=== PATIENT | male | born 1945 | race Caucasian/White ===

== ENCOUNTER 2017-01-25 19:45 | Inpatient (IN) | payer OTHER, MEDICAID ==
[~2017-01-25] VITALS: Ht 167.6 cm; Wt 86.0 kg
[~2017-01-25 19:45] MED LIST: ASPI-COR81 M2 PO; CLINDAMYCIN HC300 MG PO; DEPAKOTE ER250 M1 PO; ECO81 PO; FLO4 PO; GUAIFENESIN AC473 ML PO; HYDROCHLOROTHIA25 MG PO; LAC PO; LEVAQUIN750 MG PO; MEDDP PO; METOPROLOL TART25 M1 PO; OMEPRAZOLE DR20 M1 PO; PROMETHAZINE V118 M2 PO; ZES10 PO
[2017-01-25 20:44] LABS: BASOPHIL % 0.4 % (0-2); PLATELET COUNT 214 x10^3mcL (130-400)
[2017-01-25 20:45] LABS: RED CELL DISTRIBUTION WIDTH 14.8 % (11.5-14.5)
[2017-01-25 20:54] LABS: CALCIUM 7.7 mg/dL (8.5-10.1); CARBON DIOXIDE 28.6 mmol/L (21-32); CHLORIDE SERUM 104 mmol/L (98-107); CREATININE SERUM 1.2 mg/dL (0.7-1.3); GFR1 > 60 mL/min; GLUCOSE SERUM 126 mg/dL (74-106); POTASSIUM SERUM 3.7 mmol/L (3.5-5.1); SODIUM SERUM 138 mmol/L (136-145)
[2017-01-25 20:58] LABS: ALBUMIN 3.4 g/dL (3.4-5.0); ALKALINE PHOSPHATASE 81 U/L (46-116); ALT/SGPT 38 U/L (16-63); AST/SGOT 28 U/L (15-37); BILIRUBIN TOTAL 0.6 mg/dL (0.20-1.00); LIPASE 154 IU/L (73-393); TOTAL PROTEIN, SERUM 6.5 g/dL (6.4-8.2)
[2017-01-25 21:09] LABS: microscopic required? NO
[2017-01-25 21:13] LABS: urine erythrocyte NEGATIVE (NEGATIVE)
[2017-01-25 21:23] LABS: AMPHETAMINE QUAL UR NONE DETECTED (NEG <=1000)
[2017-01-25 23:26] LABS: TOTAL PROTEIN CSF 47.7 mg/dL (15-45)
[2017-01-25 23:38] LABS: APPEARANCE CSF CLEAR; COLOR CSF COLORLESS; RBC CSF 3 /cumm (0); WBC CSF 0 /cumm (0-5)
[2017-01-26] VITALS (7 sets, daily range): BP systolic 104–126; BP diastolic 62–78
[2017-01-26 02:01] LABS: CHOLESTEROL/HDL RATIO 2.2; MAGNESIUM 2.1 mg/dL (1.8-2.4); PHOSPHOROUS 2.9 mg/dL (2.5-4.9)
[2017-01-26 02:06] LABS: T3 TOTAL 0.95 ng/mL
[2017-01-26 02:09] LABS: FREE T4 1.07 ng/dL (0.76-1.46); FREE THYROXINE INDEX 2.7 ug/dL (1.4-4.5); T4(THYROXINE) 7.2 ug/dL (4.7-13.3)
[2017-01-26 07:41] LABS: BASOPHIL % 0.4 % (0-2); PLATELET COUNT 212 x10^3mcL (130-400)
[2017-01-26 07:45] LABS: RED CELL DISTRIBUTION WIDTH 14.7 % (11.5-14.5)
[2017-01-26 07:59] LABS: CALCIUM 8.7 mg/dL (8.5-10.1); CARBON DIOXIDE 28.4 mmol/L (21-32); CHLORIDE SERUM 107 mmol/L (98-107); GFR1 > 60 mL/min; GLUCOSE SERUM 101 mg/dL (74-106); MAGNESIUM 2.1 mg/dL (1.8-2.4); PHOSPHOROUS 3.3 mg/dL (2.5-4.9); POTASSIUM SERUM 4.2 mmol/L (3.5-5.1); SODIUM SERUM 141 mmol/L (136-145)
[2017-01-27 06:41] LABS: BASOPHIL % 0.4 % (0-2); PLATELET COUNT 204 x10^3mcL (130-400); RED CELL DISTRIBUTION WIDTH 14.5 % (11.5-14.5)
[2017-01-27 06:53] VITALS: BP 114/76
[2017-01-27 06:54] LABS: CALCIUM 8.6 mg/dL (8.5-10.1); CARBON DIOXIDE 23.6 mmol/L (21-32); CHLORIDE SERUM 106 mmol/L (98-107); CREATININE SERUM 0.9 mg/dL (0.7-1.3); GFR1 > 60 mL/min; GLUCOSE SERUM 98 mg/dL (74-106); SODIUM SERUM 139 mmol/L (136-145)
[2017-01-27 09:33] VITALS: BP 117/78
[2017-01-27 17:04] VITALS: BP 114/75
[2017-01-27 22:03] VITALS: BP 111/70
[2017-01-28 05:55] VITALS: BP 109/68
[2017-01-28 08:45] VITALS: BP 109/68
[2017-01-28 09:32] VITALS: BP 117/49
[2017-01-28 11:08] LABS: BASOPHIL % 0.4 % (0-2); PLATELET COUNT 219 x10^3mcL (130-400); RED CELL DISTRIBUTION WIDTH 14.5 % (11.5-14.5)
== END 2017-01-28 10:00 | disposition home or self-care (01) | DRG 75 ==
LOC: ED 19:45 → DU 01-26 00:08 → MU 01-27 10:19
PROVIDERS: Emergency Medicine; ADMIT Family Medicine
PROC: 009U3ZX Drainage of Spinal Canal, Percutaneous Approach, Diagnostic (ICD-10-PCS; principal; 2017-01-25)
DX: A87.9 Viral meningitis, unspecified (principal); G93.41 Metabolic encephalopathy; K72.91 Hepatic failure, unspecified with coma; I25.5 Ischemic cardiomyopathy; I10 Essential (primary) hypertension; I35.0 Nonrheumatic aortic (valve) stenosis; N40.0 Benign prostatic hyperplasia without lower urinary tract symptoms; E78.5 Hyperlipidemia, unspecified; D64.9 Anemia, unspecified; F31.9 Bipolar disorder, unspecified; F17.210 Nicotine dependence, cigarettes, uncomplicated; E66.9 Obesity, unspecified; Z68.30 Body mass index [BMI] 30.0-30.9, adult; Z79.82 Long term (current) use of aspirin; Z85.030 Personal history of malignant carcinoid tumor of large intestine; Z59.0 Homelessness
CPT/HCPCS: 82962; 83880; 84439; G0480; J0696; J1940; J2001; J2250; J3490; J7030; Q0092

== ENCOUNTER 2017-03-13 15:14 | Emergency (ER) | payer OTHER, MEDICAID ==
[~2017-03-13] VITALS: Ht 170.2 cm; Wt 81.6 kg
[2017-03-13 15:20] VITALS: BP 122/79
== END 2017-03-13 15:53 | disposition other institution (70) ==
LOC: ED 15:14
DX: Z02.89 Encounter for other administrative examinations (principal); I10 Essential (primary) hypertension; E78.00 Pure hypercholesterolemia, unspecified

== ENCOUNTER 2017-03-13 15:14 | Emergency (ER) | payer OTHER | END 2017-03-13 15:53 | disposition other institution (70) | LOC: ED 15:14 | DX: Z02.89 Encounter for other administrative examinations (principal); I10 Essential (primary) hypertension; E78.00 Pure hypercholesterolemia, unspecified ==

== ENCOUNTER 2017-03-26 05:24 | Emergency (ER) | payer OTHER, MEDICAID ==
[2017-03-26 07:18] LABS: BASOPHIL % 0.2 % (0-2); PLATELET COUNT 176 x10^3mcL (130-400); RED CELL DISTRIBUTION WIDTH 13.8 % (11.5-14.5)
[2017-03-26 07:25] LABS: CALCIUM 7.8 mg/dL (8.5-10.1); CARBON DIOXIDE 23.9 mmol/L (21-32); CHLORIDE SERUM 108 mmol/L (98-107); CREATININE SERUM 0.8 mg/dL (0.7-1.3); GFR1 > 60 mL/min; GLUCOSE SERUM 107 mg/dL (74-106); POTASSIUM SERUM 3.6 mmol/L (3.5-5.1); SODIUM SERUM 138 mmol/L (136-145)
[2017-03-26 07:30] LABS: ALBUMIN 2.7 g/dL (3.4-5.0); ALKALINE PHOSPHATASE 90 U/L (46-116); ALT/SGPT 39 U/L (16-63); AST/SGOT 29 U/L (15-37); BILIRUBIN TOTAL 0.4 mg/dL (0.20-1.00); CHOLESTEROL 114 mg/dL (<200); HDL CHOLESTEROL 42 mg/dL (40-60); PHOSPHOROUS 2.3 mg/dL (2.5-4.9); TOTAL PROTEIN, SERUM 6.1 g/dL (6.4-8.2); URIC ACID 3.3 mg/dL (3.5-7.2)
[2017-03-26 09:27] VITALS: BP 108/68
== END 2017-03-26 09:28 | disposition left against medical advice (07) ==
LOC: ED 05:24
PROVIDERS: Emergency Medicine
DX: S06.5X0A Traumatic subdural hemorrhage without loss of consciousness, initial encounter (principal); I10 Essential (primary) hypertension; E78.00 Pure hypercholesterolemia, unspecified; W50.1XXA Accidental kick by another person, initial encounter; Y93.89 Activity, other specified; Y99.8 Other external cause status; Y92.89 Other specified places as the place of occurrence of the external cause
CPT/HCPCS: 36415; 83880

== ENCOUNTER 2017-04-01 15:25 | Emergency (ER) | payer OTHER, MEDICAID ==
[~2017-04-01] VITALS: Ht 171.4 cm; Wt 79.4 kg
[2017-04-01 19:50] VITALS: BP 115/60
== END 2017-04-01 19:50 | disposition home or self-care (01) ==
LOC: ED 15:25
DX: S20.212A Contusion of left front wall of thorax, initial encounter (principal); S90.112A Contusion of left great toe without damage to nail, initial encounter; E78.00 Pure hypercholesterolemia, unspecified; I10 Essential (primary) hypertension; Z85.038 Personal history of other malignant neoplasm of large intestine; X58.XXXA Exposure to other specified factors, initial encounter; Y93.89 Activity, other specified; Y99.8 Other external cause status; Y92.89 Other specified places as the place of occurrence of the external cause

== ENCOUNTER 2017-04-05 02:49 | Emergency (ER) | payer OTHER, MEDICAID ==
[2017-04-05 05:15] VITALS: BP 109/72
== END 2017-04-05 05:15 | disposition home or self-care (01) ==
LOC: ED 02:49
DX: G89.29 Other chronic pain (principal); M79.604 Pain in right leg
CPT/HCPCS: J1885; Q0092

== ENCOUNTER 2017-04-06 21:19 | Emergency (ER) | payer OTHER, MEDICAID ==
[2017-04-06 21:36] VITALS: BP 111/76
== END 2017-04-06 22:50 | disposition left against medical advice (07) ==
LOC: ED 21:19
DX: Z53.21 Procedure and treatment not carried out due to patient leaving prior to being seen by health care provider (principal)

== ENCOUNTER 2017-04-08 00:20 | Emergency (ER) | payer OTHER, MEDICAID ==
[2017-04-08 03:51] VITALS: BP 110/64
== END 2017-04-08 03:52 | disposition home or self-care (01) ==
LOC: ED 00:20
DX: G89.29 Other chronic pain (principal); M79.604 Pain in right leg; I10 Essential (primary) hypertension; E78.5 Hyperlipidemia, unspecified; K21.9 Gastro-esophageal reflux disease without esophagitis; R41.3 Other amnesia

== ENCOUNTER 2017-04-09 21:21 | Emergency (ER) | payer OTHER, MEDICAID ==
[~2017-04-09] VITALS: Ht 170.2 cm; Wt 77.1 kg
[2017-04-09 22:10] LABS: BASOPHIL % 0.1 % (0-2); PLATELET COUNT 300 x10^3mcL (130-400)
[2017-04-09 22:24] LABS: CALCIUM 8.2 mg/dL (8.5-10.1); CARBON DIOXIDE 28.3 mmol/L (21-32); CHLORIDE SERUM 105 mmol/L (98-107); GFR1 > 60 mL/min; GLUCOSE SERUM 103 mg/dL (74-106); SODIUM SERUM 138 mmol/L (136-145)
[2017-04-10 00:07] VITALS: BP 95/57
== END 2017-04-10 00:07 | disposition home or self-care (01) ==
LOC: ED 21:21
PROVIDERS: Emergency Medicine
DX: E87.6 Hypokalemia (principal); Z59.0 Homelessness
CPT/HCPCS: 36415; G0480

== ENCOUNTER 2017-04-14 19:50 | Emergency (ER) | payer OTHER, MEDICAID ==
[2017-04-14 22:56] VITALS: BP 108/73
== END 2017-04-14 22:30 | disposition home or self-care (01) ==
LOC: ED 19:50
DX: S86.811A Strain of other muscle(s) and tendon(s) at lower leg level, right leg, initial encounter (principal); E78.00 Pure hypercholesterolemia, unspecified; I60.9 Nontraumatic subarachnoid hemorrhage, unspecified; Z79.899 Other long term (current) drug therapy; Z85.038 Personal history of other malignant neoplasm of large intestine; Z98.890 Other specified postprocedural states; X58.XXXA Exposure to other specified factors, initial encounter; Y93.89 Activity, other specified; Y92.89 Other specified places as the place of occurrence of the external cause; Y99.8 Other external cause status
CPT/HCPCS: J7030; Q0092

== ENCOUNTER 2017-04-26 10:01 | Emergency (ER) | payer OTHER ==
[~2017-04-26] VITALS: Ht 170.2 cm; Wt 77.1 kg
[2017-04-26 10:08] VITALS: BP 142/73
== END 2017-04-26 10:24 | disposition other institution (70) ==
LOC: ED 10:01
DX: Z02.89 Encounter for other administrative examinations (principal); I87.8 Other specified disorders of veins; I11.0 Hypertensive heart disease with heart failure; I50.9 Heart failure, unspecified; E11.9 Type 2 diabetes mellitus without complications; E78.00 Pure hypercholesterolemia, unspecified; N40.0 Benign prostatic hyperplasia without lower urinary tract symptoms

== ENCOUNTER 2017-06-07 02:27 | Inpatient (IN) | payer OTHER, MEDICAID ==
[~2017-06-07] VITALS: Ht 167.6 cm; Wt 78.6 kg
[2017-06-07] VITALS (7 sets, daily range): BP systolic 94–114; BP diastolic 56–69
[2017-06-07 03:52] LABS: BASOPHIL % 0 % (0-2); PLATELET COUNT 64 x10^3mcL (130-400); RED CELL DISTRIBUTION WIDTH 22.2 % (11.5-14.5)
[2017-06-07 03:55] LABS: ALKALINE PHOSPHATASE 103 U/L (46-116); ALT/SGPT 22 U/L (16-63); AST/SGOT 28 U/L (15-37); BILIRUBIN TOTAL 0.6 mg/dL (0.20-1.00); CALCIUM 7.6 mg/dL (8.5-10.1); CARBON DIOXIDE 26.8 mmol/L (21-32); CHLORIDE SERUM 108 mmol/L (98-107); CREATININE SERUM 0.9 mg/dL (0.7-1.3); GFR1 > 60 mL/min; GLUCOSE SERUM 139 mg/dL (74-106); SODIUM SERUM 142 mmol/L (136-145)
--- NOTE | 2017-06-07 04:02 | NUR ---
PATIENT SEEN SLEEPING, EXPRESS HE HAS CHEST PRESSURE WHEN AWAKEN. NO APPARENT DISTRESS NOTED.
[2017-06-07 04:03] LABS: TOTAL PROTEIN, SERUM 5.9 g/dL (6.4-8.2)
[2017-06-07 04:04] LABS: POTASSIUM SERUM 2.7 mmol/L (3.5-5.1)
[2017-06-07 04:21] LABS: ovalocyte/elliptocyte 1+; rbc morphology (normal/abnorm) ABNORMAL (NORMAL)
--- NOTE | 2017-06-07 04:27 | NUR ---
MRSA SWAB WAS DONE.
[2017-06-07] MEDS ORDERED: NEU300 PO (04:41)
[2017-06-07] MEDS ORDERED: ABILIFY5 M1 PO (04:42)
[2017-06-07] MEDS ORDERED: IBUPROFEN400 MG PO (04:43)
[2017-06-07] MEDS ORDERED: LASIX20 MG PO (04:44)
--- NOTE | 2017-06-07 05:14 | NUR ---
REPORT WAS GIVENT WERNER. PATIENT TRANSPORTED TO ROOM 225.
[2017-06-07 05:18] LABS: UA SPECIFIC GRAVITY 1.025 (1.005-1.035); microscopic required? YES; urine erythrocyte 3+ (NEGATIVE)
[2017-06-07 06:06] LABS: AMPHETAMINE QUAL UR POSITIVE (NEG <=1000)
[2017-06-07 06:07] LABS: MAGNESIUM 1.7 mg/dL (1.8-2.4); PHOSPHOROUS 3.1 mg/dL (2.5-4.9)
[2017-06-07 06:08] LABS: CHOLESTEROL/HDL RATIO 4.7
--- NOTE | 2017-06-07 06:13 | NUR ---
Admitted this 71y/o male from ED via erney. Alert and oriented. No resp.distress noted. Denies pain at this time. Admission assessment done. Sinus tachycardia tele #40. Homeless per pt. Safety maintained. Call light within reach.
--- NOTE | 2017-06-07 07:56 | NUR ---
PT RECEIVED DURING CHANGE OF SHIFT, ASLEEP BUT AROUSABLE, TELE 40, ST, PULSES PRESENT, +2 EDEMA BLE, LUNGS DIM ON 2L NC, BREATHING EVEN AND UNLABORED, BOWEL SOUNDS ACTIVE, ABLE TO VOID, MILD GENERALIZED WEAKNESS, AMBULATORY, SKIN WARM/DRY/INTACT, NO INDICATION OF PAIN, IV TO RAC INFUSING LEVAQUIN AT 100ML/HR, IV WNL, CALL LIGHT WITHIN REACH, WILL CONTINUE TO MONITOR.
--- NOTE | 2017-06-07 08:05 | NUR ---
PT IN RESTROOM.
--- NOTE | 2017-06-07 09:07 | NUR ---
DR. ESTRADA AND RESIDENTS MAKING ROUNDS, PLAN OF CARE DISCUSSED.
--- NOTE | 2017-06-07 09:30 | NUR ---
DENIES PAIN, DENIES SOB ON 2L NC, MEDS GIVEN, ACETOMINOPHEN GIVEN FOR TEMP 100.0, CALL LIGHT WITHIN REACH, WILL CONTINUE TO MONITOR.
--- NOTE | 2017-06-07 10:14 | NUR ---
DR. RIOS AT BEDSIDE ASSESSING PT.
--- NOTE | 2017-06-07 11:20 | NUR ---
PT DENIES SOB, DENIES PAIN, US AT BEDSIDE, BS 108, NO COVERAGE NEEDED, CALL LIGHT WITHIN REACH, WILL CONTINUE TO MONITOR.
--- NOTE | 2017-06-07 12:15 | NUR ---
PT ASLEEP BUT AROUSABLE, LAB AT BEDSIDE DRAWING BLOOD, CALL LIGHT WITHIN REACH, WILL CONTINUE TO MONITOR.
[2017-06-07 12:50] LABS: CALCIUM 7.8 mg/dL (8.5-10.1); CARBON DIOXIDE 25.7 mmol/L (21-32); CHLORIDE SERUM 108 mmol/L (98-107); CREATININE SERUM 0.7 mg/dL (0.7-1.3); GFR1 > 60 mL/min; GLUCOSE SERUM 111 mg/dL (74-106); SODIUM SERUM 138 mmol/L (136-145)
[2017-06-07 12:55] LABS: IRON 22 ug/dL (65-170); POTASSIUM SERUM 2.9 mmol/L (3.5-5.1); TOTAL IRON BINDING CAPACITY 181 ug/dL (250-450)
--- NOTE | 2017-06-07 13:28 | NUR ---
PT DENIES SOB, DENIES PAIN, MEDS GIVEN, CALL LIGHT WITHIN REACH, WILL CONTINUE TO MONITOR.
[2017-06-07 14:10] LABS: RED BLOOD CELLS 2.78 M/mm3 (4.52-5.90)
--- NOTE | 2017-06-07 14:19 | NUR ---
ECHO IN PROGRESS.
--- NOTE | 2017-06-07 15:13 | NUR ---
PT DENIES SOB, DENIES PAIN, STATES HE WAS SEEN BY KETTLE ROOM HELPER, CALL LIGHT WITHIN REACH, WILL CONTINUE TO MONITOR.
--- NOTE | 2017-06-07 15:45 | NUR ---
NEW IV LINE TO LFA PATENT 20GA., IV TO RAC DC'D CATHETER INTACT.
--- NOTE | 2017-06-07 15:47 | NUR ---
Initial Nutrition Assessment- Dx: PNA, NSTEMI, hypokalemia PMHx: HTN, CHF, bipolar PSHx: colon resection 2/2 cancer Labs: (06/07/17) K 2.7, Glucose 139 H, Total protein 5.9 L, Albumin 2 L, H/H 8.7L/27L. Meds: aspirin, Colace, D50%/water, ferrous sulfate, humulin R, klor-con, Lasix, levaquin, Lipitor, Lopressor, magnesium sulfate, morphine sulfate, Tylenol, Zestril, Zithromax. Diet: NPO PO Intakes: Patient is currently NPO Ht: 66 inches (5'6") Wt: 173 pounds (78.58 kg) BMI: 28 kg/m2, overweight for age. IBW: 142 pounds (65 kg) %IBW: 121% UBW: Unable to obtain Age: 64 Food Allergies: Unable to obtain Skin: Semaj 20 Edema: Per Nursing Patient Care Note (06/07), patient with edema +2 BLE GI: Last BM prior to admission Pt admitted with dx: chest pain possibly 2/2 costochondritis vs pleuritis vs NSTEMI (trop 0.659), SIRS w/ possible aspiration pneumonia, VMN with proteinuria, hypokalemia, normocytic anemia, hematuria, HTN, severe malnutrition, bipolar disorder. RDN attempted to visit with patient 2x, patient had been undergoing echo procedure and ultrasound of abdomen. RDN spoke with RN who reports patient may require higher level of care due to possible need for valve replacement and cardiac catheter. Nursing Trigger or Consult - admitted with potential risk diagnosis. Estimated Nutritional Needs Based on actual body weight of 78.58 kg. Energy: 6533-3633 kcal/d (25-30 kcal/kg for adult maintenance) Protein: 63-79 gm/d (0.8-1 gm/kg for adult maintenance) Fluid: 5437-4685 mL/d (1 mL/kcal) or per MD. Nutrition Diagnosis 1. Patient may not always meet est needs related current NPO status as evidenced by patient is meet less than 75% estimated needs. Intervention/RDN Recommendation(s): 1. Continue on NPO as medically appropriate. 2. If and when medically appropriate, consider initiating cardiac diet. 3. Consult RDN prn. Monitor/Evaluate Goal: Intake via PO intakes to meet least 75% of estimated needs. Monitor: PO intakes and/or nutrition support tolerance, Labs, GI function F/U in 2-3 days as moderate risk (06/09-)
--- NOTE | 2017-06-07 15:47 | NUR ---
Intervention/RDN Recommendation(s): 1. Continue on NPO as medically appropriate. 2. If and when medically appropriate, consider initiating cardiac diet. 3. Consult RDN prn.
--- NOTE | 2017-06-07 16:12 | NUR ---
US AT BEDSIDE, PT URINATING FREQUENTLY, BS 118, CALL LIGHT WITHIN REACH, WILL CONTINUE TO MONITOR.
--- NOTE | 2017-06-07 17:05 | NUR ---
PT BEING ESCORTED DOWNSTAIRS TO CT.
--- NOTE | 2017-06-07 17:33 | NUR ---
PT RETURNED FROM CT.
--- NOTE | 2017-06-07 18:08 | NUR ---
PT DENIES SOB, DENIES PAIN, CALL LIGHT WITHIN REACH, WILL ENDORSE PT TO NEXT SHIFT.
--- NOTE | 2017-06-07 19:20 | NUR ---
DR. AVERY IS PAGED TO MADE AWARE THAT [facility] CALLED AND STATED THAT BLOOD CULTURE IS GRAM POSITIVE COCCI IN PAIR AND CLUSTERS. WAITING FOR CALLBACK. PRIMARY NURSE KALEB MADE AWARE.
--- NOTE | 2017-06-07 19:44 | NUR ---
RECEIVED PATIENT. PATIENT IN ROOM TRYING TO FIND PANTS, VERBALIZED WANTING TO LEAVE AND GO TO [facility] AND A BOX. INFORMED PATIENT IMPORTANCE OF STAYING DUE TO CONDITION AND PATIENT VERBALIZED UNDERSTANDING. PULLED OUT PREVIOUS IV SITE TO LFA DONE BY WHITNEY. INFORMED PATIENT IMPORTANCE OF KEEPING IV SITE INTACT. PATIENT VERBALIZED UNDERSTANDING. NEW IV SITE TO LFA 22 GUAGE. INFORMED PATIENT IMPORTANCE OF TELE MONITOR WHICH WAS REMOVED BY PATIENT. PATIENT VERBALIZED UNDERSTANDING BUT PATIENT NOTED TO HAVE EPISODES OF FORGETFULNESS.
--- NOTE | 2017-06-07 20:06 | NUR ---
MOVED PATIENT TO 216 A DUE TO PATIENT NON-COMPLAINT WITH CALLING FOR NURSING ASSISTANCE WHEN AMBULATING AND MULTIPLE IV REMOVAL BY PATIENT.
--- NOTE | 2017-06-07 20:13 | NUR ---
DR. AVERY AWARE OF CRITICAL LAB VALUE OF BLOOD CULTURE.
[2017-06-07 20:30] LABS: CALCIUM 7.5 mg/dL (8.5-10.1); CARBON DIOXIDE 25.9 mmol/L (21-32); CHLORIDE SERUM 108 mmol/L (98-107); CREATININE SERUM 0.9 mg/dL (0.7-1.3); GFR1 > 60 mL/min; GLUCOSE SERUM 136 mg/dL (74-106); POTASSIUM SERUM 3.4 mmol/L (3.5-5.1); SODIUM SERUM 140 mmol/L (136-145)
[2017-06-08 04:43] VITALS: BP 120/70
[2017-06-08] MEDS ORDERED: LIPI20 PO (05:28)
[2017-06-08] MEDS ORDERED: HEP5I SC (05:28)
[2017-06-08] MEDS ORDERED: NIT0.4 SL (05:29)
[2017-06-08] MEDS ORDERED: ZES10 PO (05:29)
[2017-06-08] MEDS ORDERED: METOPROLOL TART25 M1 PO (05:29)
[2017-06-08] MEDS ORDERED: ABILIFY5 M1 PO (05:30)
[2017-06-08] MEDS ORDERED: NEU300 PO (05:30)
[2017-06-08] MEDS ORDERED: ECO81 PO (05:30)
[2017-06-08] MEDS ORDERED: L20I IV (05:31)
[2017-06-08] MEDS ORDERED: L20 PO (05:31)
--- NOTE | 2017-06-08 05:31 | NUR ---
RECEIVED CALL FROM STUDENT ACCOUNTS MANAGER JOSE MANUEL FROM [facility] WHO STATED THAT PATIENT IS READY FOR TRANSFER TO HOSPITAL. ROOM 270 BED 2 WITH CONTACT NUMBER [phone] [facility] TO GIVE REPORT. [facility] FOR TRANSPORTATION AND SCHEDULED BY JOSE MANUEL TO FIRER RETORT PATIENT AT 0800 TODAY 06/08/17. CHARGE NURSE-DARA IVERSON. DR. AVERY MADE AWARE WELL. PATIENT INFORMED AND TRANSFER PAPERWORK SIGNED BY PATIENT DIRECTLY. PATIENT VERBALIZED UNDERSTANDING.
[2017-06-08 05:57] VITALS: BP 120/70
--- NOTE | 2017-06-08 06:06 | NUR ---
REPORT GIVEN TO [facility] FROM [facility].
[2017-06-08 06:17] LABS: BASOPHIL % 0.1 % (0-2)
[2017-06-08 06:36] LABS: PLATELET COUNT 65 x10^3mcL (130-400); RED CELL DISTRIBUTION WIDTH 21.9 % (11.5-14.5)
[2017-06-08 06:42] LABS: CARBON DIOXIDE 25.5 mmol/L (21-32); CHLORIDE SERUM 108 mmol/L (98-107); CREATININE SERUM 0.8 mg/dL (0.7-1.3); GFR1 > 60 mL/min; GLUCOSE SERUM 105 mg/dL (74-106); POTASSIUM SERUM 3.7 mmol/L (3.5-5.1); SODIUM SERUM 139 mmol/L (136-145)
[2017-06-08 06:47] LABS: MAGNESIUM 1.9 mg/dL (1.8-2.4); PHOSPHOROUS 2.8 mg/dL (2.5-4.9)
--- NOTE | 2017-06-08 07:10 | NUR ---
PATIENT SITTING UP IN BED. PATIENT HAS NASAL CANNULA AT BEDSIDE BUT IT IS NOT CURRENTLY BEING USED. PATIENT DENIES PAIN, SOB AND NAUSEA. PATIENT NPO FOR PROCEDURE. BELONGINGS PACKED FOR TRANSPORT. IV LFA, SITE WNL INFUSING AT 10 ML/HR. PATIENT IS ALERT, CALM AND COOPERATIVE WITH CARE. PATIENT IS NOT IN DISTRESS, JUST ASKING FOR FOOD. PATIENT EDUCATED ABOUT PLAN OF CARE. CALL LIGHT IS WITHIN REACH, SIDE RAILS ARE UP AND BED IS LOCKED.
[2017-06-08 08:02] LABS: rbc morphology (normal/abnorm) ABNORMAL (NORMAL); schistocyte (helmet cell) 1+
--- NOTE | 2017-06-08 08:46 | NUR ---
TRANSPORT HAS NOT ARRIVED, CALLED AND SPOKE WITH PERLA MEZA, SHE WILL CALL [employer].
[2017-06-08 09:13] VITALS: BP 120/82
--- NOTE | 2017-06-08 09:24 | NUR ---
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 PATIENT DENIES PAIN AND SOB AT THIS TIME. CALL LIGHT IS WITHIN REACH. PATIENT IS READY FOR TRANSPORT, PATIENTS IV WAS FLUSHED, DISCONNECTED AND COVERED WITH A STOCKET. PATIENTS TELE WAS REMOVED AND RETURNED TO THE STATION. PATIENTS IV FLUIDS DISCARDED. PATIENTS BELONGINGS ARE PACKED. PATIENT STATED THAT ALL HIS BELONGINGS ARE WITH HIM AND HE HASNT LEFT ANYTHING BEHIND.
--- NOTE | 2017-06-08 09:54 | NUR ---
INCONTINENT OF STOOL. CLEANED AND SITTING UP IN CHAIR.
--- NOTE | 2017-06-08 10:00 | NUR ---
RECEIVED CALL FROM [facility], PICKUP DELAYED, ETA 1100.
--- NOTE | 2017-06-08 10:46 | NUR ---
CONTINUES UP IN CHAIR. TOOK ROOMMATES SANDWICH AND TOOK A COUPLE OF BITES. INSTRUCTED BY RN NOT TO EAT HAVING A TEST TODAY. COMPLIED, PUT SANDWICH DOWN.
--- NOTE | 2017-06-08 11:05 | NUR ---
PATIENT FOUND AMBULATING BY THE NURSES STATION STATING "I HAVE TO SEE A FRIEND." PATIENT PROVIDED WITH CHAIR TO SIT IN, TABLE, DRINK AND SNACK. PATIENT WITHIN VIEW OF NURSES STATION.
--- NOTE | 2017-06-08 11:17 | NUR ---
PATIENT LEFT FLOOR VIA GURNEY BY [facility] FOR TRANSPORT TO [facility]. PATIENT VERBALIZED THAT HE HAD ALL HIS BELONGINGS. REPORT GIVEN TO EMT.
== END 2017-06-08 11:20 | disposition short-term general hospital (02) | DRG 871 ==
LOC: ED 02:27 → DU 04:35
PROVIDERS: Emergency Medicine; ADMIT Family Medicine
DX: A41.9 Sepsis, unspecified organism (principal); J69.0 Pneumonitis due to inhalation of food and vomit; J96.00 Acute respiratory failure, unspecified whether with hypoxia or hypercapnia; I50.43 Acute on chronic combined systolic (congestive) and diastolic (congestive) heart failure; I21.4 Non-ST elevation (NSTEMI) myocardial infarction; E43 Unspecified severe protein-calorie malnutrition; G92 Toxic encephalopathy; N39.0 Urinary tract infection, site not specified; R65.20 Severe sepsis without septic shock; I11.0 Hypertensive heart disease with heart failure; T43.621A Poisoning by amphetamines, accidental (unintentional), initial encounter; I35.2 Nonrheumatic aortic (valve) stenosis with insufficiency; R91.1 Solitary pulmonary nodule; R31.9 Hematuria, unspecified; E87.6 Hypokalemia; E83.42 Hypomagnesemia; D64.9 Anemia, unspecified; F31.9 Bipolar disorder, unspecified; F17.210 Nicotine dependence, cigarettes, uncomplicated; Z91.14 Patient's other noncompliance with medication regimen; Z85.038 Personal history of other malignant neoplasm of large intestine; Z59.0 Homelessness; Z68.28 Body mass index [BMI] 28.0-28.9, adult; Y92.89 Other specified places as the place of occurrence of the external cause
CPT/HCPCS: 36600; 82962; 83880; J0456; J0696; J1644; J1940; J1956; J3475; J3480; J3490; J7030; J7050; J7620; Q0092

== ENCOUNTER 2017-06-27 13:07 | Emergency (ER) | payer OTHER, MEDICAID ==
[~2017-06-27 13:07] MED LIST changes: +ABILIFY5 M1 PO; +HEP5I SC; +IBUPROFEN400 MG PO; +L20 PO; +L20I IV; +LASIX20 MG PO; +LIPI20 PO; +NEU300 PO; +NIT0.4 SL
[2017-06-27 15:17] LABS: BASOPHIL % 0 % (0-2); CALCIUM 7.9 mg/dL (8.5-10.1); CARBON DIOXIDE 18.3 mmol/L (21-32); CREATININE SERUM 1.5 mg/dL (0.7-1.3); PLATELET COUNT 31 x10^3mcL (130-400); POTASSIUM SERUM 5.2 mmol/L (3.5-5.1); RED CELL DISTRIBUTION WIDTH 24.8 % (11.5-14.5)
[2017-06-27 15:33] LABS: CK-MB 34.7 ng/mL (0-3.6)
[2017-06-27 15:44] LABS: BILIRUBIN TOTAL 1.4 mg/dL (0.20-1.00); TOTAL PROTEIN, SERUM 6.2 g/dL (6.4-8.2)
--- NOTE | 2017-06-27 15:46 | NUR ---
PT INTUBATED AT [address] KISER. 7.5 ET TUBE AT 23 LIP. POSITIVE COLOR CHANGE WITH C02 CAPNOGRAPHY. BS EQUAL BILAT. PT PLACED ON VENT AT AC 14, VT 500 PEEP 5 100%. PT WITH NO PULSE AT 1459 AND CPR AND BAGGING STARTED ROSC AT 1507 PT PULSELESS AGAIN AT 1514 ROSC AT 1520 PT PULSELESS AGAIN AT 1533 WITH PEA CPR STARTED, CODE CALLED AT 1534.
[2017-06-27 15:47] LABS: rbc morphology (normal/abnorm) ABNORMAL (NORMAL)
[2017-06-27 15:49] LABS: ALBUMIN 2.1 g/dL (3.4-5.0)
[2017-06-27 19:51] VITALS: BP 63/31
== END 2017-06-27 15:34 | disposition expired ==
LOC: ED 13:07
PROVIDERS: Emergency Medicine
DX: I46.9 Cardiac arrest, cause unspecified (principal); I21.3 ST elevation (STEMI) myocardial infarction of unspecified site; I11.0 Hypertensive heart disease with heart failure; I50.9 Heart failure, unspecified; I35.0 Nonrheumatic aortic (valve) stenosis; D72.829 Elevated white blood cell count, unspecified; E87.5 Hyperkalemia; D69.6 Thrombocytopenia, unspecified; D64.9 Anemia, unspecified; E11.9 Type 2 diabetes mellitus without complications; E78.00 Pure hypercholesterolemia, unspecified
CPT/HCPCS: 83880; A4628; J0171; J0330; J1644; J3490; Q0092